=== PATIENT | male | born 1985 | race African-American/Black ===

== ENCOUNTER 2019-03-04 18:53 | Emergency (ER) | payer SELFPAY ==
[~2019-03-04] VITALS: Ht 180.3 cm; Wt 91.0 kg
[2019-03-04 23:00] VITALS: BP 137/81
== END 2019-03-04 23:34 | disposition home or self-care (01) ==
LOC: ER 18:53
DX: M54.5 Low back pain (principal); M25.512 Pain in left shoulder; M25.511 Pain in right shoulder; V49.88XA Car occupant (driver) (passenger) injured in other specified transport accidents, initial encounter; Y93.89 Activity, other specified; Y92.89 Other specified places as the place of occurrence of the external cause; Y99.8 Other external cause status
CPT/HCPCS: 99281